=== PATIENT | male | born 1960 | race Two or more races ===

== ENCOUNTER 2022-10-16 20:34 | Emergency (ER) | payer OTHER ==
[~2022-10-16] VITALS: Ht 177.8 cm; Wt 97.5 kg
--- NOTE | 2022-10-16 21:30 | NUR ---
TO ER BED 1. BIBS C/O FLANK PAIN / BACK PAIN X 2WEEKS, HX OF KIDNEY STONE. PT IS ALERT AND ORIENTED. RR EVEN AND NON LABORED. CONNECTED TO MONITOR
[2022-10-16 22:12] LABS: BASOPHILS # (AUTO) 0.1 K/uL (0.0-0.2); BASOPHILS % (AUTO) 0.6 % (0.0-2.0); EOSINOPHILS % (AUTO) 2.6 % (0.0-6.0); HEMATOCRIT 45 % (39-51); HEMOGLOBIN 14.8 g/dL (13.5-17.5); LYMPHOCYTES # (AUTO) 2.6 K/uL (0.8-4.8); LYMPHOCYTES % (AUTO) 27.6 % (20.0-44.0); MEAN CORPUSCULAR HGB CONC 33 g/dl (31.0-36.0); MEAN CORPUSCULAR VOLUME 87 fL (80-96); MONOCYTES # (AUTO) 0.8 K/uL (0.1-1.30); MONOCYTES % (AUTO) 8.2 % (2.0-12.0); NEUTROPHILS # (AUTO) 5.6 K/uL (1.8-8.9); PLATELET COUNT (AUTO) 194 K/uL (150-450); WHITE BLOOD COUNT (AUTO) 9.2 K/uL (4.3-11.0)
[2022-10-16 22:48] LABS: BILIRUBIN,DIRECT 0.1 mg/dL (0.0-0.2); BILIRUBIN,TOTAL 0.3 mg/dL (0.2-1.0); CALCIUM, SERUM 9.1 mg/dL (8.5-10.1); POTASSIUM 3.6 mmol/L (3.5-5.1); TOTAL PROTEIN, SERUM 7.6 g/dL (6.4-8.2)
--- NOTE | 2022-10-16 22:53 | NUR ---
[facility]
--- NOTE | 2022-10-16 23:07 | NUR ---
PT BACK FROM CT
[2022-10-16 23:35] LABS: BILIRUBIN,URINE NEGATIVE (NEGATIVE); COLOR,URINE YELLOW (YELLOW); LEUKOCYTE ESTERASE ,URINE NEGATIVE (NEGATIVE); NITRITE, URINE NEGATIVE (NEGATIVE); PH,URINE 5.5 (5.0-8.0); PROTEIN,URINE NEGATIVE (NEGATIVE); UGLUCOSE NEGATIVE (NEGATIVE); UROBILINOGEN,URINE 0.2 EU/dL (0.2)
[2022-10-16 23:52] LABS: ALBUMIN 3.7 g/dL (3.4-5.0)
[2022-10-17] MEDS ORDERED: ONDA4TAB11 PO (00:15)
[2022-10-17] MEDS ORDERED: TAMS-12 PO (00:15)
[2022-10-17] MEDS ORDERED: OXYC-128 PO (00:15)
--- NOTE | 2022-10-17 00:23 | NUR ---
IV removed. Catheter intact and site benign. Pressure and 4x4 applied to site. No bleeding noted.
--- NOTE | 2022-10-17 00:23 | NUR ---
Patient discharged to home in stable condition. Written and verbal after care instructions given. Patient verbalizes understanding of instruction.
[2022-10-17 00:31] VITALS: BP 134/82
[2022-10-17 01:25] LABS: BACTERIA,URINE Rare /HPF (None Seen); SQUAMOUS EPITHELIAL CELL,UR Rare /HPF (None Seen)
== END 2022-10-17 00:32 | disposition home or self-care (01) ==
LOC: ER 20:35
DX: N20.0 Calculus of kidney (principal); E78.00 Pure hypercholesterolemia, unspecified; Z98.890 Other specified postprocedural states
CPT/HCPCS: 36415; 80048-TC; 80076-TC; 81001; 83690-TC; 85025-TC

== ENCOUNTER 2025-02-24 20:06 | Emergency (ER) | payer OTHER ==
[~2025-02-24] VITALS: Ht 177.8 cm; Wt 113.4 kg
[~2025-02-24 20:06] MED LIST: ONDA4TAB11 PO; OXYC-128 PO; TAMS-12 PO
[2025-02-24] MEDS ORDERED: CYCLOBENZAPRINE 10 MG TABLET ONE (20:44)
[2025-02-24] MEDS ORDERED: IBUPROFEN 400 MG TABLET ONE (20:45)
[2025-02-24] MEDS: CYCLOBENZAPRINE 10 MG TABLET PO ONE (20:48)
[2025-02-24] MEDS: IBUPROFEN 400 MG TABLET PO ONE (20:49)
[2025-02-24] MEDS ORDERED: CYCL5TAB PO (20:50)
[2025-02-24 21:00] VITALS: BP 163/90; TEMP 98.1; O2SAT 95
== END 2025-02-24 21:00 | disposition home or self-care (01) ==
LOC: ER 20:09
DX: M79.642 Pain in left hand (principal); I10 Essential (primary) hypertension; E78.5 Hyperlipidemia, unspecified; Z87.442 Personal history of urinary calculi; Z60.2 Problems related to living alone; Z79.899 Other long term (current) drug therapy